=== PATIENT | female | born 2000 | race Caucasian/White ===

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

== ENCOUNTER 2020-06-04 07:34 | Inpatient (IN) ==
[2020-06-04] MEDS ORDERED: OXYTOCIN 30 UNITS/500 ML BAG IV PRN ×3 (08:13→13:21)
[2020-06-04 08:45] LABS: Hematocrit (blood only) 37.8 % (37-47); Hemoglobin 12.7 g/dL (12.0-16.0); Mean Corpuscular Hemoglobin 33.2 pg (25-34); Mean Corpuscular Hgb Conc 33.6 g/dL (32-36); Mean Platelet Volume 10.3 fL (7.4-10.4); Platelet Count 108 K/uL (130-400); RDW Coefficient of Variation 14.1 % (11.5-14.5); RDW Standard Deviation 50.5 fL (36.4-46.3); Red Blood Count 3.82 M/uL (4.2-5.4); White Blood Count 12.11 K/uL (4.8-10.8)
--- NOTE | 2020-06-04 08:46 | History & Physical Report ---
Date of Service June 04, 2020 Assessment & Plan (1) Encounter for supervision of normal in multigravida: 20 y/o at 40w1d w/ CLIFFORD 06/03/20 who presents for induction of labor for term . O neg. Rubella immune. GBS neg. Vital stable, some tachycardia. - uncomplicated course - Category I. Baseline 140 bpm. + accels. + early decels. No late or variable decels. Moderate variability. Continue monitoring. - reactive NST on 06/03/20 visit. - membranes stripped on 06/03/20. - hx of anxiety/depression, not on medications. patient denies recent anxiety/depression. mood is ok. - LR 125 mL/hr - induction via pitocin. will titrate. - AROM at 0913. Clear fluid. - anesthesiology consult for epidural - covid test ordered Present on Admission?: Yes (2) Rh negative state in antepartum period: - Rhogam received on 03/10/20 Present on Admission?: Yes (3) Short interval between pregnancies affecting , antepartum: - short interval btwn pregnancies, delivered 11/2018 Present on Admission?: Yes Admission and Anticipated Discharge Date Admission Date: June 04, 2020 History of Present Illness Primary Care Provider: Aleksandar Hernandez MD 20 y/o at 40w1d w/ CLIFFORD 06/03/20 determined via ultrasound#1 who presents for induction of labor for term . Membranes stripped 06/03/20. Hx of anxiety/depression, not on medications. Uncomplicated . Reactive NST 06/03/20. + contractions; + movement; - fluid loss; + bloody show Had regular appointments with OB. Labs: (10/22/19) Blood type: O neg Antibody screen: neg (03/10/20) H.7 (today) Hct: 37.8 (today) WBC: 12.11 (today) Plt: 108L (today) Rubella: immune RPR: nonreactive Gonorrhea: not detected Chlamydia: not detected HIV: neg HbSAg: neg GBS: neg (05/13/20) Glucose 1 Hr 50 gm: 89 (03/10/20) passed covid neg 05/20/20. needs repeat testing. Denies recent travel. Other screens: low risk panorama declines cf/sma/afp Allergies Allergy/AdvReac Type Severity Reaction Status Date / Time No Known Allergies Allergy Mild Unverified 06/04/20 08:27 Home Medications Medication Instructions Recorded Confirmed Type Vitamin 1 tab PO DAILY 11/26/18 06/04/20 History ferrous sulfate PO DAILY 11/19/19 06/03/20 History Patient History Medical History (Updated 06/04/20 @ 08:55 by Mina Monreal MD) History of anxiety History of depression (spontaneous vaginal delivery) Varicella vaccination Surgical History S/P myringotomy with insertion of tube Family History Grandmother (Maternal) Diabetes Social History Smoking Status: Never smoker Second Hand Exposure: No; Do You Dip or Chew Tobacco: No; Tobacco Cessation Education Requested by Patient: No Hx Alcohol Use: No Hx Substance Use: No Preferred Language: Swedish Communication Ability: Effective Shipper And Receiving Required: No Beliefs That Will Affect Care: None marital status: Single marital status details: Carlton Graff (20) [phone] Current Living Situation: Spouse Current Living Situation Comment: lives with FOB & son, no pets current occupational status: employed current occupation: [employer] Other Information That Helps Us Care for You: No Feels Safe at Home: Yes Safety Concerns: Feels Safe At This Time Assistive Devices: None Review of Systems Denies fever, chills, sweats Denies shortness of breath, difficulty breathing, chest pain, palpitations, chest pressure. Denies breast pain. Denies dysuria. + Mild 3/10 frontal SPRINGER this AM, currently resolved. Denies changes in vision. Denies nausea/vomiting. + mild diarrhea x 2 days. Denies numbness, tingling, weakness. Physical Exam Physical Exam: General: Alert, oriented. No acute distress. Cardiac: Regular rate and rhythm, no murmurs/rubs/gallops. Respiratory: Clear to auscultation bilaterally a/p, no wheezes/rales/rhonchi. No increased work of breathing. Symmetrical chest rise. No respiratory distress. Abdomen: Gravid; + FHTs. EFW 7-8. Pelvic: Dilation 3cm; Effacement 50%; Station -2. Mid soft. Per Dr. Rice. Lower Extremities: Trace LE edema. No deep calf pain. Ca's negative bilaterally Genitourinary: Manual OB Exam: + amniotic fluid (AROM at 0913) clear Results & Data ([facility]) Vital Signs (Past 12 Hours) Vital Signs Temp Pulse Resp BP 06/04/20 08:00 37 C 106 H 18 125/63 06/04/20 07:45 37 C 18 06/04/20 07:44 106 H 125/63 Monitoring External Monitor Evaluated at [id number]. External FHT and external uterine monitors used; Baseline 140 bpm. Category I tracing. + accels. + early decels. No late or varia ble decels; moderate FHT variability. Tocodynamometer q5 min Supervising Physician Co-Signing Physician Notes Resident Physician Supervision Note: I interviewed and examined the patient. Discussed with Dr. Monreal and agree with findings and plan as documented in the note. Any exceptions or clarifications are listed here: Patient at term for elective induction, agrees to proceed today. Thought she leaked fluid but SSE did not show pooling and negative nitrazine. SVE 3cm and arom done. Start pitocin. FHTs as noted, not repeatitive variables were seen but resolved with position change. Documented By: Jeannie Rice MD, FACOG Resident Activity Tracking Resident Involvement: Resident Care Provided Care Provided: OB Delivery
[2020-06-04] MEDS: LACTATED RINGER'S 1,000 ML IV PRN ×2 (09:30→10:59)
[2020-06-04] MEDS ORDERED: SODIUM CHLORIDE 0.9% INJ 10 ML VIAL ONE (10:17)
[2020-06-04] MEDS ORDERED: BUPIVACAINE 0.25% 30 ML VIAL ONE (10:17)
[2020-06-04] MEDS ORDERED: ePHEDrine sulfate 50 MG/ML AMP ONE (10:17)
[2020-06-04] MEDS ORDERED: fentaNYL 2MCG/ML ROPIVACAINE 1.25MG/ML 100 ML BAG EPI ONE (10:18)
[2020-06-04] MEDS ORDERED: fentaNYL citrate 100 MCG/2 ML VIAL ONE ×2 (10:18→11:56)
--- NOTE | 2020-06-04 10:32 | Anesthesiology Consultation ---
Date of Service June 04, 2020 Assessment & Plan (1) Encounter for pre-operative examination: Chart Review Chart Review: Acceptable Risk for Labor Epidural Consults Requested none ASA ASA2 Proposed Anesthesia Anesthesia Type: Labor Epidural Risk / Benefits Reviewed With: PT / POA / Parent / Guardian, Accepts Plan and Informed Consent Obtained History Height/Weight Height: 4 ft 11 in Weight: 73.936 kg Allergies Allergy/AdvReac Type Severity Reaction Status Date / Time No Known Allergies Allergy Mild Unverified 06/04/20 08:27 Medications Home Medications Medication Instructions Recorded Confirmed Last Taken Vitamin 1 tab PO DAILY 11/26/18 06/04/20 1 Day Ago ~06/03/20 1 tablet ferrous sulfate PO DAILY 11/19/19 06/03/20 1 Day Ago ~06/03/20 1 tablet Active Medications Generic Name Dose Route Start Last Admin Trade Name Freq PRN Reason Stop Dose Admin Lactated Ringer's 1,000 mls @ 125 mls/hr 06/04/20 08:13 06/04/20 09:30 Lr IV 06/06/20 08:12 125 mls/hr .Q8H PRN Administration L&D Protocol Protocol Oxytocin 30 units in 500 mls @ 1 mls/hr 06/04/20 09:14 06/04/20 09:28 Pitocin IV 06/06/20 09:13 0.06 units/hr .Q24H PRN 1 mls/hr Labor Induction/Augmentation Administration Protocol 0.06 UNITS/HR Past Medical History Medical History History of anxiety History of depression (spontaneous vaginal delivery) Varicella vaccination Exercise / Class Metabolic Activity II 4-5 Yardwork/Stairs/Walk up hill Past Family History Family History Grandmother (Maternal) Diabetes Past Surgical History Surgical History S/P myringotomy with insertion of tube Past Anesthesia History No Hx of Anesthesia Complications and No Family Hx of Anesthesia Complications History of PONV No Hx of PONV and No Hx of Motion Sickness Social History Smoking Status: Never smoker Do You Dip or Chew Tobacco: No Hx Alcohol Use: No Hx Substance Use: No substance use type: does not use Physical Exam Vital Signs Last Vital Signs Temp 98.1 F 06/04/20 09:35 Pulse 100 H 06/04/20 09:35 Resp 18 06/04/20 09:35 BP 118/72 06/04/20 09:35 ENMT Mouth: no dentition abnormality Thyromental Distance: > or= 3.5 Finger Breadths Mallampati Class: II Neck normal visual inspection Respiratory normal respiratory effort Auscultation: lungs clear to auscultation bilaterally Cardiovascular Rate/Rhythm: regular rate and regular rhythm Testing Laboratory Results 06/04/20 08:29
[2020-06-04] MEDS ORDERED: ONDANSETRON INJ 2 MG/ML 2 ML VIAL IV PRN (10:53)
[2020-06-04] MEDS ORDERED: fentaNYL 2MCG/ML ROPIVACAINE 1.25MG/ML 100 ML BAG EPI PRN (10:53)
[2020-06-04] MEDS ORDERED: ePHEDrine sulfate 50 MG/ML AMP IV PRN (10:53)
[2020-06-04] MEDS ORDERED: NALOXONE HCL 1 MG in SODIUM CHLORIDE 0.9% 1000ML 1,000 ML IV PRN (10:53)
[2020-06-04] MEDS ORDERED: diphenhydrAMINE 50 MG/ML VIAL IV PRN (10:53)
[2020-06-04] MEDS ORDERED: NALOXONE HCL 0.4 MG/1 ML VIAL/CARP IV PRN (10:53)
[2020-06-04] MEDS ORDERED: oxyCODONE/ACETAMINOPHEN 5mg/325mg TAB PO PRN (13:21)
[2020-06-04] MEDS ORDERED: ACETAMINOPHEN 325 MG TAB PO PRN (13:21)
--- NOTE | 2020-06-04 13:27 | Delivery Summary ---
Vaginal Delivery Summary Date of Service June 04, 2020 The patient dilated to complete and pushed to deliver a viable male Apga rs 8 and 9 via over intact perineum. Mouth and nose bulb suctioned at perineum. Mild shoulder dystocia encountered relieved with Ema maneuvers, effective maternal efforts and gentle downward traction. Then body delivered with ease. was vigorous and crying at . Cord clamped at 30 seconds of life and to maternal abdomen where the cord was then doubly clamped and cut. Placenta delivered spontaneously and intact, three-vessel cord. Hemostasis achieved with dilute pitocin and uterine massage and drainage of the bladder for approximately 200 cc under sterile conditions. Cervix and sulci intact. EBL 300 cc. Mother and baby stable recovery. [facility] Vaginal Delivery Charge Vaginal Delivery Codes: 74258 global code for the antepartum, delivery, and post-
[2020-06-04] MEDS ORDERED: OXYTOCIN 20 UNITS in LACTATED RINGER'S 1,000 ML IV SCH (13:45)
[2020-06-04] MEDS ORDERED: BENZOCAINE 20% AER SPR 82.5 GM CAN EXT PRN (13:54)
[2020-06-04] MEDS ORDERED: SUPERCREAM 0.870% 15 GM JAR EXT PRN (13:54)
[2020-06-04] MEDS ORDERED: HYDROCORTISONE ACETATE 25 MG SUPP PR PRN (13:54)
[2020-06-04] MEDS ORDERED: DIPHTHERIA/TETANUS/PERTUSSIS 0.5 ML SYR/VIAL IM ONE (13:54)
[2020-06-04] MEDS: IBUPROFEN 600 MG TAB PO PRN ×3 (14:07→20:44)
--- NOTE | 2020-06-04 14:56 | Anesthesia Procedure Note ---
Date of Service June 04, 2020 Anesthesia Post Epidural Note Vital Signs Vital Signs: Temp Pulse Resp BP Pulse Ox 36.5 C 89 18 114/62 99 06/04/20 13:46 06/04/20 14:31 06/04/20 14:31 06/04/20 14:31 06/04/20 13:46 Pain Intensity Head: Pain Intensity: 3 Notes Mental Status: alert / awake / arousable Nausea / Vomiting: adequately controlled Pain: adequately controlled Airway Patency, RR, SpO2: stable & adequate BP & HR: stable & adequate Hydration State: stable & adequate Neuraxial Anesthesia: sensory block resolved Anesthetic Complications: no major complications apparent Epidural: Removed without complications and With tip intact
[2020-06-04] MEDS ORDERED: METHYLERGONOVINE MALEATE 0.2 MG/ML AMP ONE (15:27)
--- NOTE | 2020-06-04 17:33 | Obstetrical Progress Note ---
Date of Service June 04, 2020 Assessment & Plan (1) exam: given bleeding since delivery, prob approaches 500cc ebl total. pt doing well now, cont dilute pit, no excessive bleeding. plan h/h in am. pt aware. routine pp care. Admission and Anticipated Discharge Date Admission Date: June 04, 2020 Subjective Patient was having extra bleeding since delivery and I was notified by nursing and although she was being given dilute pit with added methergine x 1. measured bleeding was 150cc, then 50cc in 30min after clots expressed. Then after methergine, 30cc in 30min. Patient notes she feels fine. Eating, voided. Resting in bed. No dizziness/lightheadedness. Review of Systems Constitutional: as per Subjective / HPI; no fever Physical Exam Constitutional: WD/WN, vitals as above Neurologic: grossly normal Psychiatric: A+Ox3, euthymic affect Genitourinary: FF at u, min vaginal bleeding. no clots. nt. Results & Data ([facility]) Vital Signs (Past 12 Hours) Vital Signs Temp Pulse Resp BP Pulse Ox 06/04/20 17:20 96 H 97 06/04/20 17:15 95 H 97 06/04/20 17:12 84 120/70 06/04/20 17:10 77 97 06/04/20 17:05 67 96 06/04/20 17:00 72 96 06/04/20 16:57 69 125/71 06/04/20 16:55 76 97 06/04/20 16:50 73 97 06/04/20 16:48 78 133/77 06/04/20 16:45 73 96 06/04/20 16:42 69 125/69 06/04/20 16:40 75 97 06/04/20 16:35 77 98 06/04/20 16:30 98.6 F 76 18 97 06/04/20 16:27 71 124/80 06/04/20 16:25 81 97 06/04/20 16:15 77 97 06/04/20 16:12 98.6 F 86 18 116/74 06/04/20 16:10 89 98 06/04/20 16:05 88 98 06/04/20 16:00 80 97 06/04/20 15:57 98.6 F 78 18 119/80 06/04/20 15:55 81 97 06/04/20 15:50 83 97 06/04/20 15:45 88 97 06/04/20 15:40 81 98 06/04/20 15:35 79 97 06/04/20 15:32 98.6 F 18 06/04/20 15:31 85 18 113/56 L 06/04/20 15:16 98.6 F 89 18 122/64 06/04/20 15:09 92 H 107/58 L 06/04/20 15:01 82 107/56 L 06/04/20 14:55 84 115/59 L 06/04/20 14:31 89 18 114/62 06/04/20 14:16 98.2 F 93 H 18 113/65 06/04/20 14:01 85 18 109/67 06/04/20 13:46 97.7 F 86 18 103/58 L 99 06/04/20 13:31 98.1 F 99 H 18 112/57 L 06/04/20 13:16 101 H 108/59 L 06/04/20 13:15 101 H 18 109/55 L 06/04/20 13:10 109 H 98 06/04/20 13:08 106 H 95/49 L 06/04/20 13:05 119 H 97 06/04/20 13:00 131 H 100 06/04/20 12:55 126 H 100 06/04/20 12:50 103 H 100 06/04/20 12:47 111 H 122/61 06/04/20 12:45 100 H 99 06/04/20 12:40 109 H 98 06/04/20 12:35 122 H 99 06/04/20 12:30 117 H 99 06/04/20 12:27 96 H 125/77 06/04/20 12:26 18 06/04/20 12:25 117 H 99 06/04/20 12:20 107 H 100 06/04/20 12:15 116 H 100 06/04/20 12:13 114 H 134/61 06/04/20 12:10 121 H 120/68 100 06/04/20 12:07 100 H 123/66 06/04/20 12:05 98 H 100 06/04/20 12:04 99 H 123/65 06/04/20 12:00 98 H 121/63 99 06/04/20 11:55 110 H 99 06/04/20 11:50 104 H 99 06/04/20 11:47 98 H 122/64 06/04/20 11:45 101 H 118/63 98 06/04/20 11:41 117 H 113/61 06/04/20 11:40 99.0 F 96 H 18 99 06/04/20 11:38 109 H 123/68 06/04/20 11:35 103 H 118/68 98 06/04/20 11:32 113 H 118/67 06/04/20 11:30 107 H 98 06/04/20 11:29 101 H 115/69 06/04/20 11:26 108 H 121/74 06/04/20 11:25 113 H 99 06/04/20 11:23 106 H 126/80 06/04/20 11:20 106 H 125/77 98 06/04/20 11:17 106 H 123/79 06/04/20 11:15 103 H 122/73 98 06/04/20 11:11 104 H 118/73 06/04/20 11:10 113 H 99 06/04/20 11:08 101 H 127/77 06/04/20 11:06 107 H 120/74 06/04/20 11:05 105 H 99 06/04/20 11:03 101 H 136/63 06/04/20 11:00 109 H 98 06/04/20 10:59 110 H 118/66 06/04/20 10:56 116 H 118/66 06/04/20 10:55 107 H 97 06/04/20 10:53 101 H 121/70 06/04/20 10:51 127 H 127/75 06/04/20 10:50 123 H 98 06/04/20 10:47 108 H 122/84 06/04/20 10:45 109 H 98 06/04/20 10:44 110 H 127/88 06/04/20 10:41 110 H 90 06/04/20 10:40 127 H 98 06/04/20 10:35 122 H 99 06/04/20 10:30 111 H 99 06/04/20 09:35 98.1 F 100 H 18 118/72 06/04/20 08:57 107 H 114/77 06/04/20 08:56 18 06/04/20 08:00 98.6 F 106 H 18 125/63 06/04/20 07:45 98.6 F 18 06/04/20 07:44 106 H 125/63 PG Care Time/CCT Total # of Minutes Spent Total Time Spent with Patient: Total time spent is greater than 50% in coordination of care (as documented) at patient's floor/unit and/or counseling patient: Coding Level of Care Code None Diagnoses exam Z39.2
[2020-06-04] MEDS: DOCUSATE SODIUM 100 MG CAP PO SCH (20:44)
--- NOTE | 2020-06-05 05:13 | Obstetrical Progress Note ---
Date of Service <Mina Monreal MD - Last Filed: 06/05/20 07:39> June 05, 2020 Assessment & Plan <Mina Monreal MD - Last Filed: 06/05/20 07:39> (1) state: 20 y/o s/p on 06/04/20 at 40w1d, PPD1. O neg. Rubella immune. Stable. Required methergine for some extra bleeding after delivery. - meeting milestones. Eating, ambulating, voiding. No pain. - - continue routine care - blood pressure trends ok. 1 teens systlic overnight. most recent, will repeat - multigravid. feels comfortable w/ home today (2) Rh negative state in antepartum period: - BBK ordered. Baby is Rh neg. Subjective <Mina Monreal MD - Last Filed: 06/05/20 07:39> Ambulation: ambulating normally Voiding: no voiding problems Passing Gas:: Yes Diet Tolerance:: regular diet Lochia:: Moderate (slowed down compared to yesterday.) Feeding Type:: breast feeding Current Pain Level(1-10): 0 Doing well overall. No current pain. Denies dizziness. + flatus, no BM. Comfortable w/ dispo home. Review of Systems Denies fever, chills, sweats Denies shortness of breath, chest pain, palpitations. Denies breast pain. Denies dysuria. Denies headache or changes in vision. Denies nausea/vomiting. Denies numbness, tingling, weakness. Physical Exam <Mina Mnoreal MD - Last Filed: 06/05/20 07:39> General: Alert, oriented. No acute distress. Cardiac: Regular rate and rhythm, no murmurs/rubs/gallops. Respiratory: Clear to auscultation bilaterally, no wheezes/rales/rhonchi. No respiratory distress. Abdomen: , soft, nontender. Uterus: Uterine fundus firm, palpable 1cm below umbilicus. Lower Extremities: Trace LE edema. No deep calf pain. Ca's negative bilaterally. Results & Data ([facility]) <Mina Monreal MD - Last Filed: 06/05/20 07:39> Vital Signs (Past 12 Hours) Vital Signs Temp Pulse Pulse Resp BP BP Pulse Ox 06/05/20 04:05 36.7 C 80 18 91/52 L 06/04/20 23:35 36.3 C L 73 18 111/67 06/04/20 20:15 36.7 C 83 16 118/81 97 06/04/20 18:15 36.5 C 88 18 116/76 97 06/04/20 17:20 96 H 97 06/04/20 17:15 95 H 97 06/04/20 17:12 84 120/70 Medications Administered <Jeannie Rice MD, FACOG - Last Filed: 06/05/20 07:42> Co-Signing Physician Notes Resident Physician Supervision Note: I was present with Dr. Monreal during the history and exam. I discussed the case with the resident and agree with the findings and plan as documented in the note. Any exceptions or clarifications are listed here: doing well, desires d/c home later today, instructions reviewed. f/u 6wk pp. hgb was unchanged this am, no bleeding issues. rh neg, baby neg, no rhogam indicated, ri, going well. Documented By: Jeannie Rice MD, FACOG Resident Activity Tracking <Mina Monreal MD - Last Filed: 06/05/20 07:39> Resident Involvement: Resident Care Provided Care Provided: OB Delivery
[2020-06-05 06:14] LABS: Hematocrit (blood only) 36.6 % (37-47); Hemoglobin 12.5 g/dL (12.0-16.0)
[2020-06-05] MEDS: DOCUSATE SODIUM 100 MG CAP PO SCH (08:06)
== END 2020-06-05 14:15 | disposition home or self-care (01) | DRG 807 ==
LOC: 4S1 07:34 → 4S2 18:14

== ENCOUNTER 2022-09-06 01:37 | Inpatient (IN) ==
[2022-09-06] MEDS ORDERED: LIDOCAINE 1% LOCAL 20 ML VIAL INFIL PRN (02:12)
[2022-09-06] MEDS ORDERED: OXYTOCIN 30 UNITS/500 ML BAG IV PRN ×3 (02:12→11:40)
[2022-09-06] MEDS ORDERED: SODIUM CHLORIDE 0.9% PF INJ 10 ML VIAL ONE (02:21)
[2022-09-06] MEDS ORDERED: LIDOCAINE 2%/EPINEPHRINE 1:200,000 20 ML PF ONE (02:21)
[2022-09-06] MEDS ORDERED: fentaNYL citrate PF 100 MCG/2 ML VIAL ONE (02:21)
[2022-09-06] MEDS ORDERED: ePHEDrine sulfate 50 MG/ML AMP ONE (02:21)
[2022-09-06] MEDS ORDERED: BUPIVACAINE 0.25% PF 30 ML VIAL ONE (02:21)
[2022-09-06] MEDS ORDERED: fentaNYL 2MCG/ML ROPIVACAINE 1.25MG/ML 100 ML BAG EPI ONE (02:22)
[2022-09-06] MEDS: LACTATED RINGER'S 1,000 ML IV PRN ×2 (02:35→03:41)
[2022-09-06 02:42] LABS: Hematocrit (blood only) 30.9 % (37.0-47.0); Mean Corpuscular Hemoglobin 28.2 pg (25.0-34.0); Mean Corpuscular Hgb Conc 32.4 g/dL (32.0-36.0); Mean Corpuscular Volume 87.3 fL (80.0-100.0); Mean Platelet Volume 10.8 fL (9.4-12.4); Platelet Count 151 K/uL (130-400); RDW Coefficient of Variation 15.3 % (11.5-14.5); RDW Standard Deviation 48.3 fL (36.4-46.3); Red Blood Count 3.54 M/uL (4.20-5.40); White Blood Count 10.75 K/ul (4.8-10.8)
[2022-09-06] MEDS ORDERED: NALBUPHINE HCL INJ 10 MG/ML AMP IV PRN (03:04)
[2022-09-06] MEDS ORDERED: NALOXONE HCL 0.4 MG/1 ML VIAL/CARP IV PRN (03:04)
[2022-09-06] MEDS ORDERED: diphenhydrAMINE 50 MG/ML VIAL IV PRN (03:04)
[2022-09-06] MEDS ORDERED: fentaNYL 2MCG/ML ROPIVACAINE 1.25MG/ML 100 ML BAG EPI PRN (03:04)
[2022-09-06] MEDS ORDERED: NALOXONE HCL 1 MG in SODIUM CHLORIDE 0.9% 1000ML 1,000 ML IV PRN (03:04)
[2022-09-06] MEDS ORDERED: ePHEDrine sulfate 50 MG/ML AMP IV PRN (03:04)
--- NOTE | 2022-09-06 03:04 | Anesthesiology Consultation ---
Date of Service September 06, 2022 Assessment & Plan Chart Review Chart Review: Patient NOT seen in Pre Admission Testing and Acceptable Risk for Labor Epidural Consults Requested none History Height/Weight Weight: 74.389 kg Allergies Allergy/AdvReac Type Severity Reaction Status Date / Time No Known Allergies Allergy Mild Verified 09/03/22 13:26 Medications Home Medications Medication Instructions Recorded Confirmed Last Taken vitamins-iron fumarate 27 1 tab PO DAILY 11/26/18 09/05/22 09/05/22 mg iron-folic acid 0.8 mg tablet ( Vitamin) acetone (urine) test (Ketone Urine #50 ea 07/12/22 09/03/22 Unknown Test strips) blood sugar diagnostic (OneTouch #150 ea 07/12/22 09/03/22 Unknown Verio test strips) blood-glucose meter (OneTouch #1 ea 07/12/22 09/03/22 Unknown Verio Reflect Meter) lancets 33 gauge (OneTouch Delica #150 ea 07/12/22 09/03/22 Unknown Lancets) ferrous sulfate 325 mg (65 mg 325 mg PO DAILY 08/26/22 09/05/22 08/26/22 iron) tablet (Iron (ferrous sulfate)) Active Medications Generic Name Dose Route Start Last Admin Trade Name Freq PRN Reason Stop Dose Admin Lactated Ringer's 1,000 mls @ 125 mls/hr 09/06/22 02:12 09/06/22 02:35 Lr IV 09/08/22 02:11 999 mls/hr .Q8H PRN Administration L&D Protocol Protocol Past Medical History Medical History Encounter for pre-operative examination Encounter for supervision of normal in multigravida History of anxiety History of depression exam Rh negative state in antepartum period Short interval between pregnancies affecting , antepartum (spontaneous vaginal delivery) Varicella vaccination Past Family History Family History Grandmother (Maternal) Diabetes Denies family history of Colon cancer Ovarian cancer Prostate cancer Myocardial infarction Breast cancer Past Surgical History Surgical History S/P myringotomy with insertion of tube Social History Smoking Status: Never smoker Do You Dip or Chew Tobacco: No Hx Alcohol Use: No Hx Substance Use: No substance use type: does not use Physical Exam Vital Signs Last Vital Signs Temp 98.2 F 09/06/22 02:07 Pulse 95 H 09/06/22 01:57 Resp 18 09/06/22 02:07 BP 129/68 09/06/22 01:57 Testing Laboratory Results 09/06/22 02:28 09/06/22 02:30 POC Glucose 92
--- NOTE | 2022-09-06 06:47 | Labor Progress Brief Note ---
Date of Service September 06, 2022 Subjective Patient returned overnight with worsening contractions and per RN exam had made cervical change. Was admitted and has received epidural. Now comfortable and sleeping when I entered the room. Assessment & Plan (1) Normal labor: Plan: Continue current management. Anticipate . GDM diet controlled, FSBG on admission was normal and no further required. Admission and Anticipated Discharge Date Admission Date: September 06, 2022 Physical Exam Genitourinary: SROM noted to have occurred prior to this exam based on soaked chux under patient, clear fluid; bulging membranes appreciated by RN on admission exam are now gone. FHT Cat 1 [place] Q5 Cvx Straight cath due and done by Bernard Rizzo, clear yellow urine noted Results & Data Vital Signs (Past 12 Hours) Vital Signs Temp Pulse Resp BP Pulse Ox 09/06/22 02:07 98.2 F 18 09/06/22 06:44 84 98/52 L 98 09/06/22 06:39 91 H 97 09/06/22 06:34 91 H 97 09/06/22 06:29 83 98 09/06/22 06:27 118 H 111/66 09/06/22 06:24 127 H 97 09/06/22 06:19 101 H 98 09/06/22 06:14 86 97 09/06/22 06:15 84 124/66 09/06/22 06:12 88 92 09/06/22 06:09 84 97 09/06/22 06:00 18 09/06/22 06:00 18 09/06/22 06:04 85 97 09/06/22 05:59 97 09/06/22 05:59 79 09/06/22 05:59 87 128/72 09/06/22 05:54 84 97 09/06/22 05:49 87 97 09/06/22 05:44 97 09/06/22 05:44 90 09/06/22 05:44 87 116/65 09/06/22 05:39 111 H 98 09/06/22 05:34 84 97 09/06/22 05:29 86 98 09/06/22 05:30 101 H 18 125/76 09/06/22 05:24 89 98 09/06/22 05:19 93 H 99 09/06/22 05:14 99 09/06/22 05:14 96 H 09/06/22 05:14 103 H 105/58 L 09/06/22 05:09 84 98 09/06/22 05:04 92 H 98 09/06/22 04:59 91 H 100 09/06/22 05:00 103 H 118/74 09/06/22 04:54 87 99 09/06/22 04:49 90 98 09/06/22 04:44 99 09/06/22 04:44 80 09/06/22 04:44 86 109/61 09/06/22 04:39 81 99 09/06/22 04:34 89 99 09/06/22 04:31 88 109/55 L 09/06/22 04:30 18 09/06/22 04:30 18 09/06/22 04:29 93 H 98 09/06/22 04:24 97 H 98 09/06/22 04:19 92 H 98 09/06/22 04:14 94 H 122/71 99 09/06/22 04:09 87 98 09/06/22 04:04 87 98 09/06/22 03:59 83 124/67 99 09/06/22 03:54 85 98 09/06/22 03:49 97 H 99 09/06/22 03:44 98 H 99 09/06/22 03:43 94 H 127/78 09/06/22 03:40 96 H 131/78 09/06/22 03:39 95 H 100 09/06/22 03:37 105 H 130/76 09/06/22 03:34 101 H 118/69 100 09/06/22 03:29 95 H 100 09/06/22 03:24 111 H 99 09/06/22 02:00 20 09/06/22 02:00 98.2 F 20 09/06/22 01:57 95 H 129/68 Coding Level of Care Code None Diagnoses Normal labor O80; Z37.9
--- NOTE | 2022-09-06 10:44 | Delivery Summary ---
Vaginal Delivery Summary Date of Service September 06, 2022 Vaginal Delivery Summary Spontaneous vaginal delivery the patient was admitted by the previous provider manager combination her contractions spaced out and she was given Pitocin she ended up delivering soon thereafter in occiput anterior baby's head was delivered fluid was clear there was no nuchal cord the gentle traction on the baby with no excessive force easy delivery live vigorous female . Cord clamped cord blood obtained placenta removed with gentle traction IV Pitocin started uterine tone improved bleeding minimal. There was no tearing sponge and instrument counts correct estimated blood loss 250 mL
[2022-09-06] MEDS ORDERED: HYDROCORTISONE ACETATE 25 MG SUPP PR PRN (11:40)
[2022-09-06] MEDS ORDERED: bisacodyL 10 MG SUPP PR PRN (11:40)
[2022-09-06] MEDS ORDERED: OXYTOCIN 20 UNITS in LACTATED RINGER'S 1,000 ML IV SCH (11:40)
[2022-09-06] MEDS ORDERED: ACETAMINOPHEN 325 MG TAB PO PRN (11:40)
[2022-09-06] MEDS ORDERED: DIPHTHERIA/TETANUS/PERTUSSIS 0.5mL SYR/VIAL (Age 7+yrs) IM ONE (11:40)
[2022-09-06] MEDS ORDERED: BENZOCAINE 20% AER SPR 82.5 GM CAN EXT PRN (11:40)
--- NOTE | 2022-09-06 12:36 | Anesthesia Procedure Note ---
Date of Service September 06, 2022 Anesthesia Post Epidural Note Vital Signs Vital Signs: Temp Pulse Resp BP Pulse Ox 36.5 C 91 H 16 121/58 L 97 09/06/22 12:14 09/06/22 12:29 09/06/22 12:14 09/06/22 12:29 09/06/22 10:39 Notes Mental Status: alert / awake / arousable and participated in evaluation Nausea / Vomiting: adequately controlled Pain: adequately controlled Airway Patency, RR, SpO2: stable & adequate BP & HR: stable & adequate Hydration State: stable & adequate Neuraxial Anesthesia: was administered and sensory block is resolving Anesthetic Complications: no major complications apparent Epidural: Removed without complications and With tip intact
[2022-09-06] MEDS: IBUPROFEN 600 MG TAB PO PRN ×2 (18:14→22:37)
[2022-09-06] MEDS: DOCUSATE SODIUM 100 MG CAP PO SCH (22:37)
[2022-09-07] MEDS: IBUPROFEN 600 MG TAB PO PRN ×2 (04:32→08:20)
--- NOTE | 2022-09-07 05:57 | Obstetrical Progress Note ---
Date of Service <Halle RowanDO - Last Filed: 09/07/22 07:13> September 07, 2022 Assessment & Plan <Halle RowanDO - Last Filed: 09/07/22 07:13> (1) Status post vaginal delivery: Feels well today. Eating well, voiding well, ambulating well. - Routine care -- OOB, ambulation, diet progression as tolerated - After discharge will have 6 week follow-up <Israel Dillon MD, FACOG - Last Filed: 09/07/22 07:35> (1) Status post vaginal delivery: Subjective <Halle RowanDO - Last Filed: 09/07/22 07:13> Michelle is a 22 y/o female who is now PPD # 1 following vaginal delivery at 40 3/7 weeks. Reports feeling well overall this morning. Mild abdominal cramping, pain well managed on analgesics. Voiding. Tolerating meals overnight and able to ambulate some. Some persistent lochia with some improvement this morning. Breast feeding. Review of Systems Denies fever, chills, sweats Denies shortness of breath, difficulty breathing, chest pain, palpitations, chest pressure. Denies breast pain. Denies dysuria. Denies headache or changes in vision. Physical Exam <Halle RowanDO - Last Filed: 09/07/22 07:13> General: Alert, oriented. No acute distress. Cardiac: Regular rate and rhythm, no murmurs/rubs/gallops. Respiratory: Clear to auscultation bilaterally a/p, no wheezes/rales/rhonchi. No increased work of breathing. Symmetrical chest rise. No respiratory distress. Abdomen: Soft, nontender, nondistended. Uterus: Uterine fundus firm, palpable 2 cm below umbilicus. Lower Extremities: No lower extremity edema or swelling. No deep calf pain. Results & Data <Halle RowanDO - Last Filed: 09/07/22 07:13> Vital Signs (Past 12 Hours) Vital Signs Temp Pulse Resp BP Pulse Ox O2 Del Method 09/07/22 04:30 36.8 C 75 18 103/66 99 Room Air 09/07/22 00:30 36.9 C 80 18 105/69 98 Room Air 09/06/22 20:00 36.7 C 76 20 108/71 98 Room Air <Israel Dillon MD, FACOG - Last Filed: 09/07/22 07:35> Co-Signing Physician Notes Resident Physician Supervision Note: I was present with Dr. Rowan during the history and exam. I discussed the case with the resident and agree with the findings and plan as documented in the note. Any exceptions or clarifications are listed here: [None] Documented By: Israel Dillon MD, FACOG Resident Activity Tracking <Halle Rowan DO - Last Filed: 09/07/22 07:13> Resident Involvement: Resident Care Provided Care Provided: OB Delivery (Post )
[2022-09-07] MEDS ORDERED: PRENATAL VITAMIN 1 TAB PO SCH (08:00)
[2022-09-07] MEDS: DOCUSATE SODIUM 100 MG CAP PO SCH (08:20)
[2022-09-07] MEDS ORDERED: bisacodyL 5 MG TABEC PO SCH (20:00)
== END 2022-09-07 14:20 | disposition home or self-care (01) | DRG 807 ==
LOC: OPB 01:37 → 4S1 01:39 → 4E2 13:17